=== PATIENT | male | born 1945 | race Caucasian/White ===

== ENCOUNTER 2018-03-02 00:13 | Inpatient (IN) ==
[2018-03-02] MEDS ORDERED: cefTRIAXone 1,000 MG in Water for inj. (sterile) 20 ML 10 ML IVP ONE (00:22)
[2018-03-02] MEDS ORDERED: 0.9 % Sodium Chloride 1,000 ML IVC ONE ×2 (00:22→01:26)
[2018-03-02] MEDS ORDERED: Piperacillin/Tazobactam 3.375 GM in Water for inj. (sterile) 20 ML 20 ML IVP ONE (00:26)
[2018-03-02] MEDS ORDERED: 0.9 % Sodium Chloride 1,000 ML IVC SCH (00:30)
--- NOTE | 2018-03-02 00:35 | Emergency Department Note ---
Addendum entered and electronically signed by Jacob Rubio DO 03/02/18 06:42: This document is signed. Original Note: Disposition Clinical Impression: VERITO (acute kidney injury) Sepsis Qualifiers: Sepsis type: sepsis due to unspecified organism Qualified Code(s): A41.9 - Sepsis, unspecified organism UTI (urinary tract infection) Qualifiers: Urinary tract infection type: site unspecified Hematuria presence: without hematuria Qualified Code(s): N39.0 - Urinary tract infection, site not specified Disposition: Admitted As Inpatient Referrals: NONE,PCP [Primary Care Provider] - Forms: ED Satisfaction Letter, Work/School Release General Adult HPI - General Chief complaint: ED General Medical Stated complaint: ams Time Seen by Provider: 03/02/18 00:22 Source: patient Mode of arrival: EMS Limitations: no limitations Nursing Notes Reviewed: Yes Vital Signs Reviewed: Yes - History of Present Illness HPI Narrative: 74-year-old male institutionalized at [facility] presents for evaluation of confusion. Patient was recently admitted for altered mental status. Patient was noted have UTI. Patient did have a Angel catheter placed and does have known renal cell carcinoma evaluated by urology and on palliative care. Patient history provided via EMS upon arrival. States difficulty with UTI over the past 1-2 weeks. Patient's been taking antibiotics as directed. Medication was reviewed. It appears the patient has been taking Ceftinir orally. Noted fevers over the past 24 hours. No anti-inflammatories given prior to ED arrival. Noted intermittent confusion. Patient states the thought of bed this morning. No LOC. Patient denies any cough. Patient denies any abdominal pain nausea or vomiting. Pain Scale: 0 - Related Data Home Medications Medication Instructions Recorded Confirmed RX: Lisinopril/Hydrochlorothiazide 1 tab PO HS 10/27/14 02/25/18 [Zestoretic 10-12.5 mg Tablet] RX: Latanoprost [Xalatan] 1 drop BOTH EYES HS 11/01/14 02/25/18 RX: Docusate Sodium [Colace] 100 mg PO BID 08/08/15 02/25/18 RX: Ondansetron HCl 4 mg PO Q8H PRN 10/23/15 02/25/18 RX: Glucosamn/Condroitn/C/Mn/[place] 3 tab PO BID 02/05/16 02/25/18 [[facility]vs Glucosamine Chondroitin Tb] RX: Acetaminophen [Non-Aspirin] 650 mg PO Q6H PRN 06/10/16 02/25/18 RX: Finasteride [Proscar] 5 mg PO DAILY 06/10/16 02/25/18 RX: Ipratropium/Albuterol Neb 3 ml IH Q6HR PRN 06/10/16 02/25/18 [Duoneb] RX: Loratadine [Claritin] 10 mg PO DAILY 09/24/16 02/25/18 RX: Simvastatin [Zocor] 10 mg PO HS 11/11/16 02/25/18 RX: metFORMIN [Glucophage] 500 mg PO BIDWM 11/11/16 02/25/18 RX: Multivitamin/Iron/Folic Acid 1 tab PO DAILY 10/23/17 02/25/18 [Certavite-Antioxidant Tablet] RX: Ascorbate Calcium [Vitamin C] 1,000 mg PO DAILY 02/25/18 02/25/18 RX: Dextran 70/Hypromellose 1 drop BOTH EYES BID 02/25/18 02/25/18 [Natural Balance Tears Eye Drop] RX: Metoprolol [Lopressor] 25 mg PO BID 02/25/18 02/25/18 RX: Omeprazole [PriLOSEC] 20 mg PO DAILY 02/25/18 02/25/18 RX: Ranitidine HCl [Zantac 75] 75 mg PO BID 02/25/18 02/25/18 RX: hydrOXYzine HCl [Hydroxyzine 25 mg PO TID PRN 02/25/18 02/25/18 HCl] Previous Rx's Medication Instructions Recorded RX: Cefdinir [Omnicef] 300 mg PO BID 5 Days #10 capsule 02/27/18 RX: Doxycycline 100 mg PO BID 5 Days #10 capsule 02/27/18 Allergies Allergy/AdvReac Type Severity Reaction Status Date / Time No Known Allergies Allergy Verified 03/02/18 00:18 All systems ED: reviewed and negative except as stated. Constitutional: Reports: fever Cardiovascular: Denies: chest pain Respiratory: Denies: cough Gastrointestinal: Denies: abdominal pain, nausea, vomiting Past Medical History - Past Medical History Source: patient Medical history: Reports: arthritis, cancer, diabetes, hypertension, pulmonary embolus, other Surgical history: Reports: other Psychiatric history: Reports: no psych history - Social History Smoking Status: Former smoker Smokeless Tobacco Status: No Alcohol use: Reports: none Drug use: Reports: none Physical Exam - General Limitations: no limitations General appearance: alert - Head Head exam: atraumatic, normocephalic, normal inspection - Eye Eye exam: Present: normal appearance, PERRL, EOMI - ENT ENT exam: normal exam, mucous membranes moist - Neck Neck exam: Present: normal inspection - Chest Chest inspection: Present: normal inspection, symmetric chest wall rise - Respiratory Respiratory exam: Present: normal lung sounds bilaterally. Absent: respiratory distress - Cardiovascular Cardiovascular exam: Present: regular rate, normal rhythm. Absent: systolic murmur - Abdominal Exam Abdominal exam: Present: soft, Non-Tender - Male exam: Present: other (Indwelling Angel catheter placed with increased urinary sediment.) - Extremities Exam Extremities exam: Present: normal inspection, other (Psoriasis of the upper extremity extensor surfaces.) - Expanded Lower Extremity Exam Neurovascular/Tendon exam: Present: normal capillary refill - Back Exam Back exam: Present: normal inspection - Neurological Exam Neurological exam: Present: alert, CN II-XII intact - Expanded Neurological Exam Patient oriented to: Present: person, time Cranial nerves: EOM function (II, III, IV, ): Normal, facial sensation (V): Normal, facial palsy (VII): Normal, spinal accessory function (XI): Normal, tongue deviation (XII): Normal Motor strength - LUE: 5/5 Motor strength - RUE: 5/5 Motor strength - LLE: 5/5 Motor strength - RLE: 5/5 Coma Scale Eye Opening: Spontaneous Coma Scale Motor Response: Obeys Commands Coma Scale Verbal Response: Confused Coma Scale Total: 14 - Skin Skin exam: Present: warm, dry, intact, normal color Course Course Narrative: Patient's records view. Patient was recently discharged from the hospital for concerns of UTI. Patient notes non-resolving symptoms with intermittent confusion. Patient is not able to provide an accurate history given his symptoms. Given history of recent falling out of bed patient will get a CT of the head. Patient also get septic workup with most appropriate antibiotic including Zosyn. Patient's cultures reviewed the past showed Proteus which is sensitive to Zosyn. - Reevaluation(s) Reevaluation #1: Patient seen and examined. Patient is resting currently. Awaiting urinalysis. Patient will get another liter of fluids. Patient does appear hypovolemic and presentation. Patient will not receive the 30 mL per KG fluid bolus. Patient will receive gradual IV fluid hydration with titration to his cardiopulmonary function. Patient's labs reviewed does show sepsis with concerns of likely urosepsis based on the patient's prior hospitalization and history. Patient does have AK I likely secondary to prerenal. Time: 01:32 Vital Signs Temperature 102.6 F H 03/02/18 00:18 Pulse Rate 91 03/02/18 00:18 Respiratory Rate 27 03/02/18 00:18 Blood Pressure 121/66 03/02/18 00:18 O2 Sat by Pulse Oximetry 95 03/02/18 00:18 Temperature 102.6 F H 03/02/18 00:18 Pulse Rate 86 03/02/18 01:28 Respiratory Rate 25 03/02/18 01:28 Blood Pressure 118/67 03/02/18 01:28 O2 Sat by Pulse Oximetry 96 03/02/18 01:28 Oxygen Delivery Oxygen Delivery Room Air Medical Decision Making - [facility] Narrative Medical decision making narrative: Patient presents for concerns of altered mental status. Recent hospitalization for altered mental status. Patient was found to have a UTI at that time. Patient was given antibiotics and discharged with by mouth antibiotics. Review the medication list reveals that the patient was on Cedinir. Patient's most re cent culture showed Proteus. Patient was started on Zosyn appropriate coverage for Proteus sensitivities. Patient's kidney function also is acutely worse likely prerenal. Patient's foot catheter was changed. Patient was fluid resuscitated with caution of his cardiopulmonary function. Patient did get a head CT given history of possible fall from his bed however there are no signs of head trauma. Patient be admitted for continued antibiotic and supportive measures. - Lab Data Lab results reviewed: Yes I reviewed the patient's lab results. Result diagrams: 03/02/18 00:43 03/02/18 00:43 Lab Results 03/02/18 03/02/18 03/02/18 Range/Units 00:43 00:43 00:43 WBC 13.2 H (4.3-11.1) K/mcL RBC 3.87 L (4.19-5.50) M/mcL Hgb 10.3 L (12.9-16.9) g/dL Hct 31.7 L (37.5-50.1) % MCV 81.9 L (83.0-100.0) fL MCH 26.6 L (28.0-33.3) pg MCHC 32.5 (31.6-35.5) g/dL RDW 15.3 H (11.5-14.5) % Plt Count 329 (140-400) K/mcL MPV 9.0 L (9.4-12.4) fL Immature Gran % 0.5 (0-4) % Seg Neutrophils % 79.3 % Lymphocytes % 8.8 % Monocytes % 10.7 % Eosinophils % 0.2 % Basophils % 0.5 % Neutrophils # 10.5 H (1.6-8.9) K/mcL Lymphocytes # 1.2 (0.6-4.6) K/mcL Monocytes # 1.4 H (0.0-1.3) K/mcL Eosinophils # 0.0 (0.0-0.6) K/mcL Basophils # 0.1 (0.0-0.2) K/mcL PT 16.1 H (9.4-12.1) Seconds INR 1.4 Sodium 133 L (136-145) mEq/L Potassium 4.6 (3.5-5.1) mEq/L Chloride 103 (98-107) mEq/L Carbon Dioxide 20 L (23-29) mEq/L BUN 29 H (8-23) mg/dL Creatinine 1.50 H (0.70-1.30) mg/dL Est GFR ( Amer) 56 L (> 60) Est GFR (Non-Af Amer) 46 L (> 60) BUN/Creatinine Ratio 19 (6-26) Glucose 180 H (70-105) mg/dL Calculated Osmolality 286 (280-300) Lactic Acid (0.5-2.2) mmol/L Calcium 9.1 (8.6-10.3) mg/dL Phosphorus 3.1 (2.7-4.5) mg/dL Magnesium 1.1 L (1.6-2.6) mg/dL Total Bilirubin 0.6 (0.3-1.0) mg/dL Direct Bilirubin 0.1 (0.0-0.2) mg/dL Indirect Bilirubin 0.5 (0.0-1.2) mg/dL AST 15 (13-39) Units/L ALT 13 (7-52) Units/L Alkaline Phosphatase 80 (34-104) Units/L Troponin I < 0.03 (< 0.04) ng/mL Serum Total Protein 7.1 (6.4-8.9) g/dL Albumin 3.4 L (3.5-5.7) g/dL Globulin 3.7 H (2.4-3.5) g/dL Albumin/Globulin Ratio 0.9 L (1.1-2.2) Urine Color (Yellow) Urine Clarity (Clear) Urine pH (5.0-8.0) pH Units Ur Specific [place] (1.010-1.025) Urine Protein (Neg-Trace) mg/dL Urine Glucose (UA) (Normal) mg/dL Urine Ketones (Negative) mg/dL Urine Blood (Negative) Urine Nitrite (Negative) Urine Bilirubin (Negative) Urine Urobilinogen (Normal) mg/dL Ur Leukocyte Esterase (Negative) Urine Microscopic RBC (0-3) per hpf Urine Microscopic WBC (0-3) per hpf Ur Squamous Epith Cells (None-Few) per lpf Urine Bacteria (None-Few) per hpf Hyaline Casts (None-Few) per lpf Ur Culture Indicated? (NO) 03/02/18 03/02/18 Range/Units 00:43 01:24 WBC (4.3-11.1) K/mcL RBC (4.19-5.50) M/mcL Hgb (12.9-16.9) g/dL Hct (37.5-50.1) % MCV (83.0-100.0) fL MCH (28.0-33.3) pg MCHC (31.6-35.5) g/dL RDW (11.5-14.5) % Plt Count (140-400) K/mcL MPV (9.4-12.4) fL Immature Gran % (0-4) % Seg Neutrophils % % Lymphocytes % % Monocytes % % Eosinophils % % Basophils % % Neutrophils # (1.6-8.9) K/mcL Lymphocytes # (0.6-4.6) K/mcL Monocytes # (0.0-1.3) K/mcL Eosinophils # (0.0-0.6) K/mcL Basophils # (0.0-0.2) K/mcL PT (9.4-12.1) Seconds INR Sodium (136-145) mEq/L Potassium (3.5-5.1) mEq/L Chloride (98-107) mEq/L Carbon Dioxide (23-29) mEq/L BUN (8-23) mg/dL Creatinine (0.70-1.30) mg/dL Est GFR ( Amer) (> 60) Est GFR (Non-Af Amer) (> 60) BUN/Creatinine Ratio (6-26) Glucose (70-105) mg/dL Calculated Osmolality (280-300) Lactic Acid 0.9 (0.5-2.2) mmol/L Calcium (8.6-10.3) mg/dL Phosphorus (2.7-4.5) mg/dL Magnesium (1.6-2.6) mg/dL Total Bilirubin (0.3-1.0) mg/dL Direct Bilirubin (0.0-0.2) mg/dL Indirect Bilirubin (0.0-1.2) mg/dL AST (13-39) Units/L ALT (7-52) Units/L Alkaline Phosphatase (34-104) Units/L Troponin I (< 0.04) ng/mL Serum Total Protein (6.4-8.9) g/dL Albumin (3.5-5.7) g/dL Globulin (2.4-3.5) g/dL Albumin/Globulin Ratio (1.1-2.2) Urine Color Yellow (Yellow) Urine Clarity Turbid A (Clear) Urine pH 5.5 (5.0-8.0) pH Units Ur Specific [place] 1.013 (1.010-1.025) Urine Protein 100 H (Neg-Trace) mg/dL Urine Glucose (UA) Normal (Normal) mg/dL Urine Ketones Negative (Negative) mg/dL Urine Blood Large H (Negative) Urine Nitrite Negative (Negative) Urine Bilirubin Negative (Negative) Urine Urobilinogen Normal (Normal) mg/dL Ur Leukocyte Esterase Large H (Negative) Urine Microscopic RBC 30-50 H (0-3) per hpf Urine Microscopic WBC TNTC H (0-3) per hpf Ur Squamous Epith Cells Moderate H (None-Few) per lpf Urine Bacteria None Seen (None-Few) per hpf Hyaline Casts None Seen (None-Few) per lpf Ur Culture Indicated? YES A (NO) - Radiology Data Radiology results reviewed: Yes I reviewed the patient's radiology results. Chest X-Ray 03/02/18 00:23 IMPRESSION: No focal pneumonia. Shallow inspiratory effort. D/ / Ildefonso Garner / Ildefonso Garner Interpreting Provider: Ildefonso Garner - EKG Data EKG #1 EKG attestation: Yes I reviewed and interpreted this EKG. EKG shows normal: sinus rhythm Rate: normal Rhythm: NSR [place]/QRS: left axis deviation, LAHB/LAFB Interpretation: no acute changes, nonspecific ST-T wave changes S.B.A.R. - S.B.A.R. Situation: Demographics Background: Presenting Complaint Assessment: Vital Signs, Course and respsone to treatment, Patient/Family Expectation Recommendation: Barrier(s) to disposition, Recommendation based on pending studies, treatments, or consults S.B.A.RChelsi Report Given to: Dr. Valdez SChelsiBChelsiATasha Repor Time: 02:07 Attestation Statement - Attestation Attestation: Resident Attestation: I examined this patient and my medical decision making was reviewed with the Resident Physician. I agree with the documented findings, disposition and treatment plan as described except to the extent set forth below. We independently had [id number] contact with the patient. Patient presents from [facility] with confusion. Patient found to be febrile. Recent UTI with Angel placement. Patient will undergo further evaluation for sepsis. Likely UTI in nature given the department quality of urine in the Angel. Patient is resting in bed, answers questions, mildly confused, abdomen with generalized tenderness without focal tenderness, no guarding or rebound. Urine within the Angel catheter appears to be grossly purulent. Antibiotics given. Patient admitted to the hospital service for further management of UTI, VERITO.
[2018-03-02 00:58] LABS: Basophils # 0.1 K/mcL (0.0-0.2); Basophils % 0.5 %; Eosinophils % 0.2 %; Hematocrit 31.7 % (37.5-50.1); Hemoglobin 10.3 g/dL (12.9-16.9); Immature Granulocytes % 0.5 % (0-4); Lymphocytes # 1.2 K/mcL (0.6-4.6); Lymphocytes % 8.8 %; Mean Corpuscular HGB Conc 32.5 g/dL (31.6-35.5); Mean Corpuscular Hemoglobin 26.6 pg (28.0-33.3); Mean Corpuscular Volume 81.9 fL (83.0-100.0); Monocytes # 1.4 K/mcL (0.0-1.3); Monocytes % 10.7 %; Neutrophils # 10.5 K/mcL (1.6-8.9); Platelet Count 329 K/mcL (140-400); Red Blood Count 3.87 M/mcL (4.19-5.50); Red Cell Distribution Width 15.3 % (11.5-14.5); Segmented Neutrophils % 79.3 %
[2018-03-02 01:05] LABS: INR 1.4; Prothrombin Time 16.1 Seconds (9.4-12.1)
[2018-03-02 01:21] LABS: Alanine Aminotransferase 13 Units/L (7-52); Albumin 3.4 g/dL (3.5-5.7); Albumin/Globulin Ratio 0.9 (1.1-2.2); Alkaline Phosphatase 80 Units/L (34-104); Aspartate Amino Transferase 15 Units/L (13-39); BUN/Creatinine Ratio 19 (6-26); Bilirubin,Direct 0.1 mg/dL (0.0-0.2); Bilirubin,Indirect 0.5 mg/dL (0.0-1.2); Bilirubin,Total 0.6 mg/dL (0.3-1.0); Blood Urea Nitrogen 29 mg/dL (8-23); Calcium 9.1 mg/dL (8.6-10.3); Carbon Dioxide 20 mEq/L (23-29); Chloride 103 mEq/L (98-107); Globulin 3.7 g/dL (2.4-3.5); Glucose 180 mg/dL (70-105); Magnesium 1.1 mg/dL (1.6-2.6); Osmolality,Calculated 286 (280-300); Phosphorous 3.1 mg/dL (2.7-4.5); Potassium 4.6 mEq/L (3.5-5.1); Sodium 133 mEq/L (136-145); Total Protein 7.1 g/dL (6.4-8.9); Troponin I < 0.03 ng/mL (< 0.04); eGFR For Non-African Americans 46 (> 60)
[2018-03-02 01:43] LABS: Bilirubin,Urine Negative (Negative); Blood,Urine Large (Negative); Clarity,Urine Turbid (Clear); Color,Urine Yellow (Yellow); Glucose,Urine (UA) Normal (Normal); Ketones,Urine Negative (Negative); Leukocyte Esterase,Urine Large (Negative); Nitrite,Urine Negative (Negative); PH,Urine 5.5 pH Units (5.0-8.0); Protein,Urine 100 mg/dL (Neg-Trace); Specific Gravity,Urine 1.013 (1.010-1.025); Urobilinogen,Urine Normal (Normal)
[2018-03-02 01:45] LABS: Bacteria,Urine None Seen per hpf (None-Few); Hyaline Casts,Urine None Seen per lpf (None-Few); RBC,Urine 30-50 per hpf (0-3); Squamous Epithelial Cell,Urine Moderate per lpf (None-Few); WBC,Urine TNTC per hpf (0-3)
[2018-03-02] MEDS ORDERED: Naloxone 0.4 MG/ML INJ IVP PRN (03:30)
[2018-03-02] MEDS ORDERED: *HR* Dextrose 50 % in Water (Syg) 50 ML SYRINGE IVP PRN (03:33)
[2018-03-02] MEDS ORDERED: D5% in Water 1,000 ML IVC PRN (03:33)
[2018-03-02] MEDS ORDERED: Dextrose Gel 15 GM/37.5 ML TUBE PO PRN ×2 (03:33)
[2018-03-02 04:13] LABS: Basophils % 0.3 %; Eosinophils % 0.3 %; Hematocrit 28.1 % (37.5-50.1); Hemoglobin 8.9 g/dL (12.9-16.9); Immature Granulocytes % 0.5 % (0-4); Lymphocytes % 8.8 %; Mean Corpuscular HGB Conc 31.7 g/dL (31.6-35.5); Mean Corpuscular Volume 82.2 fL (83.0-100.0); Mean Platelet Volume 9.5 fL (9.4-12.4); Monocytes # 1.2 K/mcL (0.0-1.3); Monocytes % 10.2 %; Neutrophils # 9.4 K/mcL (1.6-8.9); Platelet Count 271 K/mcL (140-400); Red Blood Count 3.42 M/mcL (4.19-5.50); Red Cell Distribution Width 15.6 % (11.5-14.5); Segmented Neutrophils % 79.9 %
[2018-03-02 04:14] LABS: INR 1.5; Prothrombin Time 16.5 Seconds (9.4-12.1)
[2018-03-02 04:30] LABS: Albumin 2.9 g/dL (3.5-5.7); Albumin/Globulin Ratio 0.9 (1.1-2.2); Bilirubin,Total 0.6 mg/dL (0.3-1.0); Calcium 8.2 mg/dL (8.6-10.3); Globulin 3.2 g/dL (2.4-3.5); Potassium 4.1 mEq/L (3.5-5.1); Total Protein 6.1 g/dL (6.4-8.9)
[2018-03-02] MEDS: Insulin LISPRO 300 UNITS/3 ML VIAL SQ SCH ×4 (08:18→18:00)
[2018-03-02] MEDS: Piperacillin/Tazobactam 3.375 GM in 0.9 % Sodium Chloride Mini Bag 100 ML IVPB SCH ×3 (08:18→23:48)
[2018-03-02] MEDS: 0.9 % Sodium Chloride 1,000 ML IVC SCH ×2 (10:50→23:47)
--- NOTE | 2018-03-02 15:21 | Electrocardiograph Report ---
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
[2018-03-02] MEDS: traMADol 50 MG TABLET PO PRN (17:57)
[2018-03-02] MEDS: *HR* Heparin 5,000 UNIT/ML VIAL SQ SCH (17:57)
--- NOTE | 2018-03-03 00:53 | Internal Med History&Physical ---
Date of Encounter: 03/02/18 Time of Encounter: 19:00 Internal Medicine - H&P: HPI Admitted From: Long-term Nursing Facility Plans for Post Hospital Care: Transfer Alf Facility History of present illness: The patient is a 72-year-old male. We got him from his [facility] last night. Evidently, he has developed worsening of his mental status recently. Evaluation in the emergency room revealed changes in urine. We feel, that the patient has developed urinary tract infection. He feels weak and tired. Denies chest pain. Denies difficulty breathing. The patient has indwelling Angel catheter. PAST MEDICAL HX: He has had type 2 diabetes mellitus, hypertension, hyperlipidemia, COPD, GERD, BPH and hyperactive bladder. One can see that this patient was taking recently Omnicef and/or doxycycline. PAST FAMILY HX: Not obtainable from the patient. PAST SOCIAL HX: He is a former smoker. There is no history of alcohol use. REVIEW OF SYSTEMS: All 14 organ systems were reviewed by me with the patient. Positive and pert inent negative findings are listed above. The rest of organ systems is negative. PHYSICAL EXAM: Skin: Free of rash and discoloration. Eyes: Sclera is white. There is no discharge from eyes. ENMT: Oral/pharyngeal mucosa is normal in appearance. There is no discharge from nose or ears. Respiratory: Normal breath sounds with no crackles and wheezes bilaterally. CV: Heart is regular with no gallop or murmur. GI: Abdomen is flat and soft with no palpable mass or visceromegaly. : There is no tenderness in patient's flanks bilaterally. : There is no tenderness with palpation of his lungs. He has indwelling Angel catheter. Neuro exam: He has good strength in upper and lower extremities. He has normal eye movements. Psychiatric: He has normal affect. His thought process is appropriate to the situation. ADDITIONAL DATA: CT of head and brain has been done. It shows no acute intracranial abnormality. It shows generalized atrophy with chronic microvascular ischemic changes. Chest x-ray was done with shallow inspiratory effort. There is no evidence for pneumonia or pulmonary congestion. His CBC was done on 2 occasions. WBC is 13.2 thousand and 11.8 thousand. Hemoglobin is 10.3 and 8.9 (after some hydration). Platelet count is 329,002 171,000. His BMP at admission showed normal electrolytes. It showed a creatinine of 1.50; it was 1.083 days ago. UA shows changes typical for urinary tract infection. A/P: Altered mental status. Likely secondary to urinary tract infectionsee below. Urinary tract infection in a patient with indwelling Angel catheter. With sepsis and mild dehydration/acute kidney injury. xxx. Patient received total of 3 L of IV fluids. He has normal saline running at 75 cc/h. He got 1 dose of IV Rocephin. He is currently on IV Zosyn. Mild anemia. Hemoglobin is 8.9 (after hydration). He had hemoglobin of 11.9 in September 2017. For outpatient treatment. Type 2 diabetes mellitus. I will keep him on diabetic diet and when necessary Humalog. He was taking metformin at [facility]. COPD (non-oxygen dependent). Stable. I will continue when necessary oxygen. Past Med Surg Social Fam HX - Past Medical History Medical history: arthritis, cancer, diabetes, hypertension, pulmonary embolus, other Additional medical history: Enlarged Prostate, Psychiatric history: no psych history - Past Surgical History Surgical History: other Additional surgical history: T & A. TURP - Social History Smoking Status: Former smoker Smokeless Tobacco Status: No Alcohol use: none Drug use: none - Family History Father Living Status: Hx Family Cardiac Disorders: No Hx Family Respiratory Disorders: No Hx Family Cancer: No Hx Family GI Disorders: No Hx Family Endocrine Disorder: No Hx Family Neuromuscular Disorders: No Hx Family Neurologic Disorders: No Hx Family HEENT Disorders: No Hx Family Autoimmune Disorders: No Internal Medicine - H&P: Meds Latanoprost [Xalatan] 1 drop BOTH EYES HS 11/01/14 [History] Docusate Sodium [Colace] 100 mg PO BID 08/08/15 [History] Ondansetron HCl 4 mg PO Q8H PRN 10/23/15 [History] Glucosamn/Cond[place]n/C/Mn/[place] [[facility] Glucosamine Chondroitin Tb] 3 tab PO DAILY 02/05/16 [History] Acetaminophen [Non-Aspirin] 650 mg PO Q6H PRN 06/10/16 [History] Finasteride [Proscar] 5 mg PO DAILY 06/10/16 [History] Ipratropium/Albuterol Neb [Duoneb] 3 ml IH Q6HR PRN 06/10/16 [History] Loratadine [Claritin] 10 mg PO DAILY 09/24/16 [History] Simvastatin [Zocor] 10 mg PO HS 11/11/16 [History] metFORMIN [Glucophage] 500 mg PO BIDWM 11/11/16 [History] Multivitamin/Iron/Folic Acid [Certavite-Antioxidant Tablet] 1 tab PO DAILY 10/23/17 [History] Ascorbate Calcium [Vitamin C] 1,000 mg PO DAILY 02/25/18 [History] Dextran 70/Hypromellose [Natural Balance Tears Eye Drop] 1 drop BOTH EYES BID 02/25/18 [History] Metoprolol [Lopressor] 25 mg PO BID 02/25/18 [History] Omeprazole [PriLOSEC] 20 mg PO DAILY 02/25/18 [History] Ranitidine HCl [Zantac 75] 75 mg PO BID 02/25/18 [History] hydrOXYzine HCl [Hydroxyzine HCl] 25 mg PO TID PRN 02/25/18 [History] Cefdinir [Omnicef] 300 mg PO BID 5 Days #10 capsule 02/27/18 [Rx] Doxycycline 100 mg PO BID 5 Days #10 capsule 02/27/18 [Rx] Lisinopril-HCTZ 10-12.5 [Prinzide 10-12.5] 1 tab PO DAILY 03/02/18 [History] Oxybutynin [Ditropan] 10 mg PO BID 03/02/18 [History] Allergy/AdvReac Type Severity Reaction Status Date / Time No Known Allergies Allergy Verified 03/02/18 00:18 - Constitutional Vitals: Temp Pulse Resp BP Pulse Ox 98.8 F 87 15 101/61 95 03/03/18 00:17 03/03/18 00:17 03/03/18 00:17 03/03/18 00:17 03/03/18 00:17 General appearance: Present: A&O X 2, no acute distress, answers questions appropriately Exam: xx Internal Med - H&P Results - Labs CBC & Chem 7: 03/02/18 03:53 03/02/18 03:53 Labs: Short CBC 03/02/18 03/02/18 Range/Units 00:43 03:53 WBC 13.2 H 11.8 H (4.3-11.1) K/mcL Hgb 10.3 L 8.9 L (12.9-16.9) g/dL Hct 31.7 L 28.1 L (37.5-50.1) % Plt Count 329 271 (140-400) K/mcL Neutrophils # 10.5 H 9.4 H (1.6-8.9) K/mcL BMP 03/02/18 03/02/18 00:43 03:53 Sodium 133 L 136 Potassium 4.6 4.1 Chloride 103 109 H Carbon Dioxide 20 L 19 L BUN 29 H 28 H Creatinine 1.50 H 1.45 H Glucose 180 H 162 H Calcium 9.1 8.2 L Cardiac Enzymes 03/02/18 Range/Units 00:43 Troponin I < 0.03 (< 0.04) ng/mL Liver Function 03/02/18 03/02/18 Range/Units 00:43 03:53 Total Bilirubin 0.6 0.6 (0.3-1.0) mg/dL Direct Bilirubin 0.1 (0.0-0.2) mg/dL AST 15 12 L (13-39) Units/L ALT 13 11 (7-52) Units/L Alkaline Phosphatase 80 65 (34-104) Units/L Albumin 3.4 L 2.9 L (3.5-5.7) g/dL Urine 03/02/18 Range/Units 01:24 Urine Color Yellow (Yellow) Urine Clarity Turbid A (Clear) Urine pH 5.5 (5.0-8.0) pH Units Ur Specific [place] 1.013 (1.010-1.025) Urine Protein 100 H (Neg-Trace) mg/dL Urine Glucose (UA) Normal (Normal) mg/dL - Impressions ITS Impressions Chest X-Ray 03/02/18 00:23 IMPRESSION: No focal pneumonia. Shallow inspiratory effort. D/ / Ildefonso Garner / Ildefonso Garner Interpreting Provider: Ildefonso Garner Head CT 03/02/18 00:27 IMPRESSION: No acute intracranial abnormality. Generalized atrophy with chronic microvascular ischemic changes. D/ / 03/02/2018 07:08:00 Janette Frances MD / neva Interpreting Provider: Janette Frances MD - Assessment and plan (1) Altered mental state Current Visit: Yes Status: Acute Qualifiers: Altered mental status type: somnolence Qualified Code(s): R40.0 - Somnolence (2) UTI (urinary tract infection) due to urinary indwelling Angel catheter Current Visit: Yes Status: Acute Qualifiers: Indwelling urinary catheter type: indwelling urethral catheter Encounter type: initial encounter Qualified Code(s): T83.511A - Infection and inflammatory reaction due to indwelling urethral catheter, initial encounter; N39.0 - Urinary tract infection, site not specified (3) Sepsis Current Visit: Yes Status: Acute Qualifiers: Sepsis type: sepsis due to unspecified organism Qualified Code(s): A41.9 - Sepsis, unspecified organism (4) VERITO (acute kidney injury) Current Visit: Yes Status: Acute (5) Anemia Current Visit: Yes Status: Chronic Qualifiers: Anemia type: unspecified type Qualified Code(s): D64.9 - Anemia, unspecified (6) Type 2 diabetes mellitus Current Visit: Yes Status: Acute Qualifiers: 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
[2018-03-03] MEDS: *HR* Heparin 5,000 UNIT/ML VIAL SQ SCH ×2 (05:34→17:37)
[2018-03-03 05:38] LABS: Hematocrit 28.2 % (37.5-50.1); Hemoglobin 8.9 g/dL (12.9-16.9); Mean Corpuscular HGB Conc 31.6 g/dL (31.6-35.5); Mean Corpuscular Hemoglobin 26.4 pg (28.0-33.3); Mean Corpuscular Volume 83.7 fL (83.0-100.0); Red Blood Count 3.37 M/mcL (4.19-5.50)
[2018-03-03 05:39] LABS: Basophils % 0.4 %; Eosinophils # 0.1 K/mcL (0.0-0.6); Eosinophils % 0.9 %; Immature Granulocytes % 0.8 % (0-4); Lymphocytes # 0.9 K/mcL (0.6-4.6); Lymphocytes % 8.5 %; Mean Platelet Volume 9.6 fL (9.4-12.4); Monocytes # 0.8 K/mcL (0.0-1.3); Monocytes % 7.9 %; Neutrophils # 8.4 K/mcL (1.6-8.9); Platelet Count 276 K/mcL (140-400); Red Cell Distribution Width 15.7 % (11.5-14.5); Segmented Neutrophils % 81.5 %
[2018-03-03 05:56] LABS: BUN/Creatinine Ratio 20 (6-26); Blood Urea Nitrogen 24 mg/dL (8-23); Calcium 8.4 mg/dL (8.6-10.3); Carbon Dioxide 22 mEq/L (23-29); Chloride 107 mEq/L (98-107); Glucose 116 mg/dL (70-105); Osmolality,Calculated 289 (280-300); Sodium 137 mEq/L (136-145); eGFR For Non-African Americans 60 (> 60)
[2018-03-03] MEDS: Insulin LISPRO 300 UNITS/3 ML VIAL SQ SCH ×3 (08:19→17:37)
[2018-03-03] MEDS: Piperacillin/Tazobactam 3.375 GM in 0.9 % Sodium Chloride Mini Bag 100 ML IVPB SCH ×3 (08:56→23:22)
--- NOTE | 2018-03-03 10:57 | Internal Med Progress Note ---
Hospitalist Progress Note - Encounter Date of Encounter: 03/03/18 Time of Encounter: 11:00 - Subjective Interval History: Patient presents from the ECF due to altered mental status found to have pyuria on urinalysis with presumed UTI. Patient's leukocytosis has resolved overnight and patient has been afebrile since starting IV Zosyn Patient's acute kidney injury has also resolved after receiving IV fluids - Exam Vitals: Temp Pulse Resp BP Pulse Ox 99.2 F 90 15 125/47 96 03/03/18 06:31 03/03/18 06:31 03/03/18 06:31 03/03/18 06:31 03/03/18 09:01 Exam: xx - Assessment and Plan (1) UTI (urinary tract infection) due to urinary indwelling Angel catheter Current Visit: Yes Status: Acute Assessment and Plan: Patient with pyuria on urinalysis with leukocytosis and low-grade temp Will continue IV Zosyn until culture results finalized (2) Altered mental state Current Visit: Yes Status: Acute Assessment and Plan: Patient presented from ECF due to altered mental status; suspect due to above (3) VERITO (acute kidney injury) Current Visit: Yes Status: Resolved Assessment and Plan: Resolved; suspect secondary to dehydration (4) Sepsis Current Visit: Yes Status: Acute Assessment and Plan: Resolved as she is no longer febrile and leukocytosis has resolved (5) Anemia Current Visit: Yes Status: Chronic Assessment and Plan: Stable; continue to monitor (6) Type 2 diabetes mellitus Current Visit: Yes Status: Acute Assessment and Plan: Continue coverage with sliding-scale insulin DVT Prophylaxis: Subcutaneous heparin - Time Spent with Patient Total time spent is greater than 50% in coordination of care (as documented) at patient's floor/unit and/or counseling patient: Internal Medicine: Result - Labs CBC & Chem 7: 03/03/18 04:57 03/03/18 04:57 Labs: Short CBC 03/03/18 Range/Units 04:57 WBC 10.3 (4.3-11.1) K/mcL Hgb 8.9 L (12.9-16.9) g/dL Hct 28.2 L (37.5-50.1) % Plt Count 276 (140-400) K/mcL Neutrophils # 8.4 (1.6-8.9) K/mcL BMP 03/03/18 04:57 Sodium 137 Potassium 4.0 Chloride 107 Carbon Dioxide 22 L BUN 24 H Creatinine 1.19 Glucose 116 H Calcium 8.4 L - ABG Interpretation ABG results: PT/INR, D-dimer PT 16.5 Seconds (9.4-12.1) H 03/02/18 03:53 - VTE Deep Vein Thrombosis/Pulmonary Embolism Present on Admission: No Consult Discharge Plan - Plan Referrals: NONE,PCP [Primary Care Provider] - (1) UTI (urinary tract infection) due to urinary indwelling Angel catheter Qualifiers: Indwelling urinary catheter type: indwelling urethral catheter Encounter type: initial encounter Qualified Code(s): T83.511A - Infection and inflammatory reaction due to indwelling urethral catheter, initial encounter; N39.0 - Urinary tract infection, site not specified (2) Altered mental state Qualifiers: Altered mental status type: somnolence Qualified Code(s): R40.0 - Somnolence (4) Sepsis Qualifiers: Sepsis type: sepsis due to unspecified organism Qualified Code(s): A41.9 - Sepsis, unspecified organism (5) Anemia Qualifiers: Anemia type: unspecified type Qualified Code(s): D64.9 - Anemia, unspecified (6) Type 2 diabetes mellitus Qualifiers: Diabetes mellitus marine oil terminal superintendent insulin use: without marine oil terminal superintendent use Diabetes mellitus complication status: without complication Qualified Code(s): E11.9 - Type 2 diabetes mellitus without complications
[2018-03-03] MEDS: traMADol 50 MG TABLET PO PRN (14:42)
[2018-03-04] MEDS: *HR* Heparin 5,000 UNIT/ML VIAL SQ SCH ×2 (05:55→17:25)
[2018-03-04] MEDS ORDERED: Ipratropium/Albuterol Neb 3 ML IH PRN (07:46)
[2018-03-04] MEDS ORDERED: Ondansetron ODT 4 MG TAB.RAPDIS PO PRN (07:46)
[2018-03-04] MEDS: Insulin LISPRO 300 UNITS/3 ML VIAL SQ SCH ×3 (08:00→17:31)
[2018-03-04] MEDS: Loratadine 10 MG TABLET PO SCH (08:58)
[2018-03-04] MEDS: Multivit/Ca/Min/Fe/FA 1 TAB TABLET PO SCH (08:58)
[2018-03-04] MEDS: Ascorbic Acid 500 MG TABLET PO SCH (08:58)
[2018-03-04] MEDS: Famotidine 20 MG TABLET PO SCH (08:58)
[2018-03-04] MEDS: Finasteride 5 MG TABLET PO SCH (08:58)
[2018-03-04] MEDS: Piperacillin/Tazobactam 3.375 GM in 0.9 % Sodium Chloride Mini Bag 100 ML IVPB SCH (08:58)
[2018-03-04] MEDS: [UNRECOGNIZED DRUG - OTHER] PO SCH (08:59)
--- NOTE | 2018-03-04 10:41 | Internal Med Progress Note ---
Hospitalist Progress Note - Encounter Date of Encounter: 03/04/18 Time of Encounter: 10:39 - Subjective Interval History: Patient mental status has improved, he is alert and oriented 3 this morning. - Exam Vitals: Temp Pulse Resp BP Pulse Ox 97.5 F L 84 18 115/60 94 03/04/18 07:09 03/04/18 07:09 03/04/18 07:09 03/04/18 07:09 03/04/18 07:09 Exam: PHYSICAL EXAMINATION: GENERAL APPEARANCE: The patient is alert, oriented and in no acute distress. HEENT: Head is normocephalic. The sinuses are nontender. Pupils are equal and reactive. The nares are patent. Oropharynx clear without lesions. NECK: Supple without lymphadenopathy. HEART: Regular rate and rhythm. LUNGS: No crackles or wheezes are heard. ABDOMEN: Soft, nontender, nondistended with good bowel sounds heard. Inguinal area is normal. EXTREMITIES: Without cyanosis, clubbing or edema. NEUROLOGICAL: Gross nonfocal. SKIN: Warm and dry without any rash. - Assessment and Plan (1) Altered mental state Current Visit: Yes Status: Resolved (2) UTI (urinary tract infection) due to urinary indwelling Angel catheter Current Visit: Yes Status: Acute Assessment and Plan: Patient with pyuria on urinalysis with leukocytosis and low-grade temp pending urine cx, continue Zosyn for now, will de-escalate abx once cx results available. (3) Sepsis Current Visit: Yes Status: Acute Assessment and Plan: Resolved as she is no longer febrile and leukocytosis has resolved (4) VERITO (acute kidney injury) Current Visit: Yes Status: Resolved Assessment and Plan: Resolved; suspect secondary to dehydration (5) Anemia Current Visit: Yes Status: Chronic Assessment and Plan: Stable; continue to monitor (6) Type 2 diabetes mellitus Current Visit: Yes Status: Acute Assessment and Plan: Continue coverage with sliding-scale insulin. DVT Prophylaxis: heparin sq. - Time Spent with Patient Total time spent is greater than 50% in coordination of care (as documented) at patient's floor/unit and/or counseling patient: Greater than 35 minutes Plan of Care Discussed with: patient Internal Medicine: Result - Labs CBC & Chem 7: 03/03/18 04:57 03/03/18 04:57 - ABG Interpretation ABG results: PT/INR, D-dimer PT 16.5 Seconds (9.4-12.1) H 03/02/18 03:53 - VTE Deep Vein Thrombosis/Pulmonary Embolism Present on Admission: No Consult Discharge Plan - Plan Referrals: NONE,PCP [Primary Care Provider] - (1) Altered mental state Qualifiers: Altered mental status type: somnolence Qualified Code(s): R40.0 - Somnolence (2) UTI (urinary tract infection) due to urinary indwelling Angel catheter Qualifiers: Indwelling urinary catheter type: indwelling urethral catheter Encounter type: initial encounter Qualified Code(s): T83.511A - Infection and inflammatory reaction due to indwelling urethral catheter, initial encounter; N39.0 - Urinary tract infection, site not specified (3) Sepsis Qualifiers: Sepsis type: sepsis due to unspecified organism Qualified Code(s): A41.9 - Sepsis, unspecified organism (5) Anemia Qualifiers: Anemia type: unspecified type Qualified Code(s): D64.9 - Anemia, unspecified (6) Type 2 diabetes mellitus Qualifiers: Diabetes mellitus terminal manager insulin use: without terminal manager use Diabetes mellitus complication status: without complication Qualified Code(s): E11.9 - Type 2 diabetes mellitus without complications
[2018-03-04] MEDS: Artificial Tears SOLN 15 ML BOTTLE BOTH EYES SCH ×2 (12:16→22:03)
[2018-03-04] MEDS: amLODIPine 5 MG TABLET PO SCH (17:25)
[2018-03-04] MEDS: Ertapenem 1,000 MG in 0.9 % Sodium Chloride Mini Bag 100 ML IVPB SCH (17:25)
[2018-03-04] MEDS: Latanoprost 2.5 ML BOTTLE BOTH EYES SCH (22:03)
[2018-03-04] MEDS: traMADol 50 MG TABLET PO PRN (22:43)
[2018-03-05] MEDS: *HR* Heparin 5,000 UNIT/ML VIAL SQ SCH ×2 (04:58→18:49)
[2018-03-05 05:19] LABS: Basophils % 0.4 %; Eosinophils # 0.1 K/mcL (0.0-0.6); Eosinophils % 1.5 %; Hematocrit 28.7 % (37.5-50.1); Hemoglobin 9.1 g/dL (12.9-16.9); Immature Granulocytes % 0.6 % (0-4); Lymphocytes # 0.9 K/mcL (0.6-4.6); Lymphocytes % 12.8 %; Mean Corpuscular HGB Conc 31.7 g/dL (31.6-35.5); Mean Corpuscular Hemoglobin 26.1 pg (28.0-33.3); Mean Corpuscular Volume 82.5 fL (83.0-100.0); Mean Platelet Volume 9.1 fL (9.4-12.4); Monocytes # 0.5 K/mcL (0.0-1.3); Monocytes % 7.3 %; Neutrophils # 5.6 K/mcL (1.6-8.9); Platelet Count 329 K/mcL (140-400); Red Blood Count 3.48 M/mcL (4.19-5.50); Red Cell Distribution Width 15.7 % (11.5-14.5); Segmented Neutrophils % 77.4 %
[2018-03-05 05:37] LABS: BUN/Creatinine Ratio 20 (6-26); Blood Urea Nitrogen 22 mg/dL (8-23); Carbon Dioxide 25 mEq/L (23-29); Chloride 105 mEq/L (98-107); Glucose 111 mg/dL (70-105); Magnesium 1.4 mg/dL (1.6-2.6); Osmolality,Calculated 288 (280-300); Potassium 4.1 mEq/L (3.5-5.1); Sodium 137 mEq/L (136-145); eGFR For Non-African Americans > 60 (> 60)
[2018-03-05] MEDS: Insulin LISPRO 300 UNITS/3 ML VIAL SQ SCH ×3 (08:11→17:34)
[2018-03-05] MEDS: Ascorbic Acid 500 MG TABLET PO SCH (10:24)
[2018-03-05] MEDS: Finasteride 5 MG TABLET PO SCH (10:24)
[2018-03-05] MEDS: Famotidine 20 MG TABLET PO SCH (10:24)
[2018-03-05] MEDS: [UNRECOGNIZED DRUG - OTHER] PO SCH (10:25)
[2018-03-05] MEDS: Ertapenem 1,000 MG in 0.9 % Sodium Chloride Mini Bag 100 ML IVPB SCH (10:25)
[2018-03-05] MEDS: Artificial Tears SOLN 15 ML BOTTLE BOTH EYES SCH ×2 (10:26→21:50)
[2018-03-05] MEDS: Multivit/Ca/Min/Fe/FA 1 TAB TABLET PO SCH (10:29)
[2018-03-05] MEDS: amLODIPine 5 MG TABLET PO SCH (10:29)
[2018-03-05] MEDS: Loratadine 10 MG TABLET PO SCH (10:30)
[2018-03-05] MEDS: Latanoprost 2.5 ML BOTTLE BOTH EYES SCH (21:50)
[2018-03-05] MEDS: traMADol 50 MG TABLET PO PRN (22:59)
[2018-03-06] MEDS: *HR* Heparin 5,000 UNIT/ML VIAL SQ SCH (05:09)
[2018-03-06] MEDS: Insulin LISPRO 300 UNITS/3 ML VIAL SQ SCH ×2 (08:54→12:01)
[2018-03-06] MEDS: Ertapenem 1,000 MG in 0.9 % Sodium Chloride Mini Bag 100 ML IVPB SCH (09:00)
[2018-03-06] MEDS: Ascorbic Acid 500 MG TABLET PO SCH (09:01)
[2018-03-06] MEDS: Finasteride 5 MG TABLET PO SCH (09:01)
[2018-03-06] MEDS: Loratadine 10 MG TABLET PO SCH (09:01)
[2018-03-06] MEDS: amLODIPine 5 MG TABLET PO SCH (09:01)
[2018-03-06] MEDS: Multivit/Ca/Min/Fe/FA 1 TAB TABLET PO SCH (09:01)
[2018-03-06] MEDS: Famotidine 20 MG TABLET PO SCH (09:01)
[2018-03-06] MEDS: Artificial Tears SOLN 15 ML BOTTLE BOTH EYES SCH (09:02)
[2018-03-06] MEDS: [UNRECOGNIZED DRUG - OTHER] PO SCH (10:02)
[2018-03-06 11:58] VITALS: BP 114/76
--- NOTE | 2018-03-06 13:16 | Discharge Summary ---
- NOTES TO OUTPATIENT PROVIDER Notes to Outpatient Provider: Follow up with PCP in 7 days Orders not resulted at time of discharge: Pending orders 03/02/18 00:43 Culture,Blood [BC] Stat Date of Encounter: 03/06/18 Time of Encounter: 13:14 - Discharge Diagnosis (1) Sepsis Priority: Primary Status: Acute Assessment and Plan: Resolved as she is no longer febrile and leukocytosis has resolved rom his [facility] last night. Evidently, he has developed worsening of his mental status recently. Evaluation in the emergency room revealed changes in urine. We feel, that the patient has developed urinary tract infection. He feels weak and tired. Denies chest pain. Denies difficulty breathing. The patient has indwelling Angel catheter. Qualifiers: Sepsis type: sepsis due to unspecified organism Qualified Code(s): A41.9 - Sepsis, unspecified organism (2) VERITO (acute kidney injury) Priority: Secondary Status: Resolved Assessment and Plan: Resolved; suspect secondary to dehydration (3) Anemia Priority: Secondary Status: Chronic Qualifiers: Anemia type: unspecified type Qualified Code(s): D64.9 - Anemia, unspecified (4) Type 2 diabetes mellitus Priority: Secondary Status: Acute Qualifiers: Diabetes mellitus snf insulin use: without pharmacognosy teacher use Diabetes mellitus complication status: without complication Qualified Code(s): E11.9 - Type 2 diabetes mellitus without complications (5) UTI (urinary tract infection) due to urinary indwelling Angel catheter Priority: Secondary Status: Acute Qualifiers: Indwelling urinary catheter type: indwelling urethral catheter Encounter type: initial encounter Qualified Code(s): T83.511A - Infection and inflammatory reaction due to indwelling urethral catheter, initial encounter; N39.0 - Urinary tract infection, site not specified (6) Altered mental state Priority: Secondary Status: Resolved Qualifiers: Altered mental status type: somnolence Qualified Code(s): R40.0 - Somnolence Hospital course: Mr. Huff is a 72 year old male Evidently, he has developed worsening of his mental status recently. Evaluation in the emergency room revealed changes in urine. We feel, that the patient has developed urinary tract infection. He feels weak and tired. Denies chest pain. Denies difficulty breathing. The patient has indwelling Angel catheter. urinary culture did not grow any organism. He was initially started on Zosyn. Based on his last visit jose sanchez was placed in [facility]. He improved and discharged back to [facility] Discharge discussed with: patient Time spent discussing smoking cessation with patient: more than 10 minutes - Time Spent with Patient Total time spent providing and/or coordinating discharge services: greater than 30min Greater than 30 minutes - Discharge Medications Prescriptions: Amoxicillin/Clavulanate [Augmentin] 875 mg PO BIDWM #8 tablet Home Medications: Latanoprost [Xalatan] 1 drop BOTH EYES HS 11/01/14 [History] Docusate Sodium [Colace] 100 mg PO BID 08/08/15 [History] Ondansetron HCl 4 mg PO Q8H PRN 10/23/15 [History] Glucosamn/Condroitn/C/Mn/[place] [[facility] Glucosamine Chondroitin Tb] 3 tab PO DAILY 02/05/16 [History] Acetaminophen [Non-Aspirin] 650 mg PO Q6H PRN 06/10/16 [History] Finasteride [Proscar] 5 mg PO DAILY 06/10/16 [History] Ipratropium/Albuterol Neb [Duoneb] 3 ml IH Q6HR PRN 06/10/16 [History] Loratadine [Claritin] 10 mg PO DAILY 09/24/16 [History] Simvastatin [Zocor] 10 mg PO HS 11/11/16 [History] metFORMIN [Glucophage] 500 mg PO BIDWM 11/11/16 [History] Multivitamin/Iron/Folic Acid [Certavite-Antioxidant Tablet] 1 tab PO DAILY 10/23/17 [History] Ascorbate Calcium [Vitamin C] 1,000 mg PO DAILY 02/25/18 [History] Dextran 70/Hypromellose [Natural Balance Tears Eye Drop] 1 drop BOTH EYES BID 02/25/18 [History] Metoprolol [Lopressor] 25 mg PO BID 02/25/18 [History] Omeprazole [PriLOSEC] 20 mg PO DAILY 02/25/18 [History] Ranitidine HCl [Zantac 75] 75 mg PO BID 02/25/18 [History] hydrOXYzine HCl [Hydroxyzine HCl] 25 mg PO TID PRN 02/25/18 [History] Lisinopril-HCTZ 10-12.5 [Prinzide 10-12.5] 1 tab PO DAILY 03/02/18 [History] Oxybutynin [Ditropan] 10 mg PO BID 03/02/18 [History] Amoxicillin/Clavulanate [Augmentin] 875 mg PO BIDWM #8 tablet 03/05/18 [Rx] Allergies/Adverse Reactions: Allergy/AdvReac Type Severity Reaction Status Date / Time No Known Allergies Allergy Verified 03/02/18 00:18 Date of admission: 03/02/18 13:26 Primary care physician: PCP NONE Consults: 03/02/18 08:38 Consult to Loss Prevention Leader [CONS] Routine Reason for SW Consult: PATIENT FROM [facility] IN [place] - Constitutional Vitals: Temp Pulse Resp BP Pulse Ox 97.4 F L 69 16 114/76 94 03/06/18 11:54 03/06/18 11:54 03/06/18 11:54 03/06/18 11:54 03/06/18 11:54 General appearance: Present: A&O X 2, A&O X 3, no acute distress, answers questions appropriately Exam: PHYSICAL EXAMINATION: GENERAL APPEARANCE: The patient is alert, oriented and in no acute distress. HEENT: Head is normocephalic. The sinuses are nontender. Pupils are equal and reactive. The nares are patent. Oropharynx clear without lesions. NECK: Supple without lymphadenopathy. HEART: Regular rate and rhythm. LUNGS: No crackles or wheezes are heard. ABDOMEN: Soft, nontender, nondistended with good bowel sounds heard. Inguinal area is normal. EXTREMITIES: Without cyanosis, clubbing or edema. NEUROLOGICAL: Gross nonfocal. SKIN: Warm and dry without any rash. - Patient Status Disposition: Transfer LTC Condition: Good Functional capacity at discharge: uses cane/walker Overall status at discharge: patient is progressing back to baseline - Discharge Instructions Follow Up With: NONE,PCP [Primary Care Provider] - - VTE Deep Vein Thrombosis/Pulmonary Embolism Present on Admission: No
--- NOTE | 2018-03-06 13:52 | Physician Discharge Referral ---
ExtendedCare Referral Info Transfer To: ecf Provider in Charge after Transfer: PCP Institutional Level of Care: Skilled - Diagnosis (1) Sepsis Status: Acute (2) VERITO (acute kidney injury) Status: Resolved (3) Anemia Status: Chronic (4) Type 2 diabetes mellitus Status: Acute (5) UTI (urinary tract infection) due to urinary indwelling Angel catheter Status: Acute (6) Altered mental state Status: Resolved - Transfer Medications Prescriptions: Amoxicillin/Clavulanate [Augmentin] 875 mg PO BIDWM #8 tablet Ertapenem Sodium [Invanz] 1,000 mg IJ DAILY 4 Days #4 vial Home Medications: Latanoprost [Xalatan] 1 drop BOTH EYES HS 11/01/14 [History] Docusate Sodium [Colace] 100 mg PO BID 08/08/15 [History] Ondansetron HCl 4 mg PO Q8H PRN 10/23/15 [History] Glucosamn/Condroitn/C/Mn/[place] [[facility] Glucosamine Chondroitin Tb] 3 tab PO DAILY 02/05/16 [History] Acetaminophen [Non-Aspirin] 650 mg PO Q6H PRN 06/10/16 [History] Finasteride [Proscar] 5 mg PO DAILY 06/10/16 [History] Ipratropium/Albuterol Neb [Duoneb] 3 ml IH Q6HR PRN 06/10/16 [History] Loratadine [Claritin] 10 mg PO DAILY 09/24/16 [History] Simvastatin [Zocor] 10 mg PO HS 11/11/16 [History] metFORMIN [Glucophage] 500 mg PO BIDWM 11/11/16 [History] Multivitamin/Iron/Folic Acid [Certavite-Antioxidant Tablet] 1 tab PO DAILY 10/23/17 [History] Ascorbate Calcium [Vitamin C] 1,000 mg PO DAILY 02/25/18 [History] Dextran 70/Hypromellose [Natural Balance Tears Eye Drop] 1 drop BOTH EYES BID 02/25/18 [History] Metoprolol [Lopressor] 25 mg PO BID 02/25/18 [History] Omeprazole [PriLOSEC] 20 mg PO DAILY 02/25/18 [History] Ranitidine HCl [Zantac 75] 75 mg PO BID 02/25/18 [History] hydrOXYzine HCl [Hydroxyzine HCl] 25 mg PO TID PRN 02/25/18 [History] Lisinopril-HCTZ 10-12.5 [Prinzide 10-12.5] 1 tab PO DAILY 03/02/18 [History] Oxybutynin [Ditropan] 10 mg PO BID 03/02/18 [History] Amoxicillin/Clavulanate [Augmentin] 875 mg PO BIDWM #8 tablet 03/05/18 [Rx] Ertapenem Sodium [Invanz] 1,000 mg IJ DAILY 4 Days #4 vial 03/06/18 [Rx] Allergies/Adverse Reactions: Allergy/AdvReac Type Severity Reaction Status Date / Time No Known Allergies Allergy Verified 03/02/18 00:18 - Respiratory Orders Smoking Cessation: Smoking cessation has been advised. For more information, call the [place] Tobacco Quit Line at 8-102-TCFTNOW. CERTIFICATION: I certify that the transfer of the above named patient to an Extended Care Facility is necessary for the continuing treatment of the diagnosis listed. The above information is true and accurate reflection of patient's current condition. Confidential - Redisclosure prohibited without a patient's written consent.
--- NOTE | 2018-03-06 14:18 | Discharge Summary ---
- NOTES TO OUTPATIENT PROVIDER Notes to Outpatient Provider: Follow up with PCP in 7 days Orders not resulted at time of discharge: Pending orders 03/02/18 00:43 Culture,Blood [BC] Stat Date of Encounter: 03/06/18 Time of Encounter: 14:17 - Discharge Diagnosis (1) Sepsis Priority: Primary Status: Acute Qualifiers: Sepsis type: sepsis due to unspecified organism Qualified Code(s): A41.9 - Sepsis, unspecified organism (2) VERITO (acute kidney injury) Priority: Primary Status: Resolved (3) Anemia Priority: Secondary Status: Chronic Qualifiers: Anemia type: unspecified type Qualified Code(s): D64.9 - Anemia, unspecified (4) Type 2 diabetes mellitus Priority: Secondary Status: Acute Qualifiers: Diabetes mellitus penitentiary insulin use: without penitentiary use Diabetes mellitus complication status: without complication Qualified Code(s): E11.9 - Type 2 diabetes mellitus without complications (5) UTI (urinary tract infection) due to urinary indwelling Angel catheter Priority: Primary Status: Acute Qualifiers: Indwelling urinary catheter type: indwelling urethral catheter Encounter type: initial encounter Qualified Code(s): T83.511A - Infection and inflammatory reaction due to indwelling urethral catheter, initial encounter; N39.0 - Urinary tract infection, site not specified (6) Altered mental state Priority: Secondary Status: Resolved Qualifiers: Altered mental status type: somnolence Qualified Code(s): R40.0 - Somnolence Hospital course: Mr. Huff is a 72 year old male Evidently, he has developed worsening of his mental status recently. Evaluation in the emergency room revealed changes in urine. We feel, that the patient has developed urinary tract infection. He feels weak and tired. Denies chest pain. Denies difficulty breathing. The patient has indwelling Angel catheter. urinary culture did not grow any organism. He was initially started on Zosyn. Based on his last visit cuue hr was placed in [facility]. He improved and discharged back to group home - Time Spent with Patient Total time spent providing and/or coordinating discharge services: - Discharge Medications Prescriptions: Ertapenem Sodium [Invanz] 1,000 mg IJ DAILY 4 Days #4 vial Home Medications: Latanoprost [Xalatan] 1 drop BOTH EYES HS 11/01/14 [History] Docusate Sodium [Colace] 100 mg PO BID 08/08/15 [History] Ondansetron HCl 4 mg PO Q8H PRN 10/23/15 [History] Glucosamn/Condroitn/C/Mn/[place] [[facility] Glucosamine Chondroitin Tb] 3 tab PO DAILY 02/05/16 [History] Acetaminophen [Non-Aspirin] 650 mg PO Q6H PRN 06/10/16 [History] Finasteride [Proscar] 5 mg PO DAILY 06/10/16 [History] Ipratropium/Albuterol Neb [Duoneb] 3 ml IH Q6HR PRN 06/10/16 [History] Loratadine [Claritin] 10 mg PO DAILY 09/24/16 [History] Simvastatin [Zocor] 10 mg PO HS 11/11/16 [History] metFORMIN [Glucophage] 500 mg PO BIDWM 11/11/16 [History] Multivitamin/Iron/Folic Acid [Certavite-Antioxidant Tablet] 1 tab PO DAILY 10/23/17 [History] Ascorbate Calcium [Vitamin C] 1,000 mg PO DAILY 02/25/18 [History] Dextran 70/Hypromellose [Natural Balance Tears Eye Drop] 1 drop BOTH EYES BID 02/25/18 [History] Metoprolol [Lopressor] 25 mg PO BID 02/25/18 [History] Omeprazole [PriLOSEC] 20 mg PO DAILY 02/25/18 [History] Ranitidine HCl [Zantac 75] 75 mg PO BID 02/25/18 [History] hydrOXYzine HCl [Hydroxyzine HCl] 25 mg PO TID PRN 02/25/18 [History] Lisinopril-HCTZ 10-12.5 [Prinzide 10-12.5] 1 tab PO DAILY 03/02/18 [History] Oxybutynin [Ditropan] 10 mg PO BID 03/02/18 [History] Ertapenem Sodium [Invanz] 1,000 mg IJ DAILY 4 Days #4 vial 03/06/18 [Rx] Allergies/Adverse Reactions: Allergy/AdvReac Type Severity Reaction Status Date / Time No Known Allergies Allergy Verified 03/02/18 00:18 Date of admission: 03/02/18 13:26 Primary care physician: PCP NONE Consults: 03/02/18 08:38 Consult to Ammunition Officer [CONS] Routine Reason for SW Consult: [facility] - Constitutional Vitals: Temp Pulse Resp BP Pulse Ox 97.4 F L 69 16 114/76 94 03/06/18 11:54 03/06/18 11:54 03/06/18 11:54 03/06/18 11:54 03/06/18 11:54 General appearance: Present: A&O X 2, A&O X 3, no acute distress, answers questions appropriately Exam: PHYSICAL EXAMINATION: GENERAL APPEARANCE: The patient is alert, oriented and in no acute distress. HEENT: Head is normocephalic. The sinuses are nontender. Pupils are equal and reactive. The nares are patent. Oropharynx clear without lesions. NECK: Supple without lymphadenopathy. HEART: Regular rate and rhythm. LUNGS: No crackles or wheezes are heard. ABDOMEN: Soft, nontender, nondistended with good bowel sounds heard. Inguinal area is normal. EXTREMITIES: Without cyanosis, clubbing or edema. NEUROLOGICAL: Gross nonfocal. SKIN: Warm and dry without any rash. - Patient Status Disposition: Transfer SNF Condition: Good - Discharge Instructions Follow Up With: NONE,PCP [Primary Care Provider] - - VTE Deep Vein Thrombosis/Pulmonary Embolism Present on Admission: No
--- NOTE | 2018-03-06 17:17 | Internal Med Progress Note ---
Hospitalist Progress Note - Encounter Date of Encounter: 03/05/18 Time of Encounter: 04:00 - Exam Vitals: Temp Pulse Resp BP Pulse Ox 97.4 F L 69 16 114/76 94 03/06/18 11:54 03/06/18 11:54 03/06/18 11:54 03/06/18 11:54 03/06/18 11:54 Exam: PHYSICAL EXAMINATION: GENERAL APPEARANCE: The patient is alert, oriented and in no acute distress. HEENT: Head is normocephalic. The sinuses are nontender. Pupils are equal and reactive. The nares are patent. Oropharynx clear without lesions. NECK: Supple without lymphadenopathy. HEART: Regular rate and rhythm. LUNGS: No crackles or wheezes are heard. ABDOMEN: Soft, nontender, nondistended with good bowel sounds heard. Inguinal area is normal. EXTREMITIES: Without cyanosis, clubbing or edema. NEUROLOGICAL: Gross nonfocal. SKIN: Warm and dry without any rash. This progress report is for 03/05/2018. patient still to complete 3 days of antibiotics for UTI/Sepsis. He still not feeling well . however there is a drop in the WBC. We reevaluate him tomorrow. - Assessment and Plan (1) Sepsis Status: Acute (2) VERITO (acute kidney injury) Status: Resolved (3) Anemia Status: Chronic (4) Type 2 diabetes mellitus Status: Acute (5) UTI (urinary tract infection) due to urinary indwelling Angel catheter Status: Acute (6) Altered mental state Status: Resolved - Time Spent with Patient Total time spent is greater than 50% in coordination of care (as documented) at patient's floor/unit and/or counseling patient: Internal Medicine: Result - Labs CBC & Chem 7: 03/05/18 04:57 03/05/18 04:57 - ABG Interpretation ABG results: PT/INR, D-dimer PT 16.5 Seconds (9.4-12.1) H 03/02/18 03:53 - VTE Deep Vein Thrombosis/Pulmonary Embolism Present on Admission: No Consult Discharge Plan - Plan Referrals: NONE,PCP [Primary Care Provider] - Prescriptions: Ertapenem Sodium [Invanz] 1,000 mg IJ DAILY 4 Days #4 vial (1) Sepsis Qualifiers: Sepsis type: sepsis due to unspecified organism Qualified Code(s): A41.9 - Sepsis, unspecified organism (3) Anemia Qualifiers: Anemia type: unspecified type Qualified Code(s): D64.9 - Anemia, unspecified (4) Type 2 diabetes mellitus Qualifiers: Diabetes mellitus group home insulin use: without bacon skin lifter use Diabetes mellitus complication status: without complication Qualified Code(s): E11.9 - Type 2 diabetes mellitus without complications (5) UTI (urinary tract infection) due to urinary indwelling Angel catheter Qualifiers: Indwelling urinary catheter type: indwelling urethral catheter Encounter type: initial encounter Qualified Code(s): T83.511A - Infection and inflammatory reaction due to indwelling urethral catheter, initial encounter; N39.0 - Urinary tract infection, site not specified (6) Altered mental state Qualifiers: Altered mental status type: somnolence Qualified Code(s): R40.0 - Somnolence
== END 2018-03-06 14:58 | DRG 698 ==
LOC: 3BNU 00:13 → EMEROOARM 00:13 → 3BNU 02:40 → SUATTDRO 13:26
PROVIDERS: ADMIT Internal Medicine; ATTEND Hospitalist